=== PATIENT | female | born 1970 | race Caucasian/White ===

== ENCOUNTER 2021-05-22 08:38 | Day surgery (SDC) | payer OTHER, SELFPAY ==
[~2021-05-22] VITALS: Ht 162.6 cm; Wt 57.6 kg
[2021-05-22] MEDS ORDERED: fentaNYL citrate 0.05 MG/ML VIAL ONE (09:13)
[2021-05-22] MEDS ORDERED: diphenhydrAMINE 50 MG/ML VIAL ONE (09:13)
[2021-05-22] MEDS ORDERED: MIDAZOLAM 5 MG/5 ML VIAL ONE ×2 (09:13→10:03)
[2021-05-22] MEDS ORDERED: LIDOCAINE 2% 100 MG/5 ML UJET TP ONE (09:14)
[2021-05-22] MEDS ORDERED: diphenhydrAMINE 50 MG/ML VIAL IVP ONE (12:55)
[2021-05-22] MEDS ORDERED: MIDAZOLAM 2 MG/2 ML VIAL IVP ONE (12:55)
[2021-05-22] MEDS ORDERED: fentaNYL citrate 0.05 MG/ML VIAL IVP ONE (12:55)
== END 2021-05-22 11:00 | disposition home or self-care (01) ==
LOC: MDS 08:38 → MMU 08:38 → MDS 11:00
PROVIDERS: ATTEND Internal Medicine Gastroenterology
DX: R63.4 Abnormal weight loss (principal); K52.9 Noninfective gastroenteritis and colitis, unspecified; Z79.899 Other long term (current) drug therapy; Z20.822 Contact with and (suspected) exposure to COVID-19
CPT/HCPCS: 43239; 45380; 87426; J1200; J2250; J3010